=== PATIENT | male | born 1935 | race Caucasian/White ===

== ENCOUNTER 2016-07-19 18:51 | Emergency (ER) | payer MEDICARE ==
[~2016-07-19] VITALS: Ht 177.8 cm; Wt 109.1 kg
[~2016-07-19 18:51] MED LIST: ASPI-973 PO; ATOR20TA PO; LORA-303 PO; LOSA50TA37 PO; METO25TA99 PO; NITR0.4T SL; OMEG500C3 PO; OXYC1TAB24 PO; PANT40TA2 PO; SUCR1TAB30 PO
[2016-07-19 18:52] VITALS: BP 190/131; PULSE 86; RESP 15; O2SAT 100
--- NOTE | 2016-07-19 19:11 | ED.REPORT ---
HPI-General Illness Date of Service Jul 19, 2016 ED Provider: Dr. Yifan Rolon MD An 81 year old male with a history of hypertension, ASPVD s/p CABG, type II diabetes mellitus, GERD, GI bleeds and a previous aortic aneurysm presents to the ED with multiple medical complaints associated with high BP that began yesterday. Associated symptoms include headache, irritability and general malaise for the past few days. Patient recorded his systolic BP at 167/110 last night and called his PCP who recommended he take Losartan, Lorazepam and Metoprolol. Patient took 3 Metoprolol today with little relief. His symptoms have been persistent since onset. Nursing Notes Stated Complaint: HIGH B.P. Chief Complaint: General Complaint Nursing Notes Reviewed: Yes Allergies: Coded Allergies: Penicillins (Verified Allergy, Unknown, 07/19/16) azithromycin (Verified Allergy, Unknown, 07/19/16) escitalopram (Verified Allergy, Unknown, 07/19/16) Scheduled Aspirin (Aspirin) 81 Mg Tablet 81 MG PO DAILY Atorvastatin (Lipitor) 20 Mg Tablet 40 MG PO DAILY Losartan Potassium (Losartan Potassium) 50 Mg Tablet 50 MG PO DAILY Metoprolol Succinate ER (Metoprolol Succinate ER) 25 Mg Tab.er.24h 25 MG PO DAILY [place]-3 Fatty Acids (Fish Oil) 500 Mg Capsule 1,000 MG PO DAILY Pantoprazole DR (Protonix) 40 Mg Tablet 40 MG PO BID Sucralfate (Carafate) 1 Gm Tablet 1 GM PO QID Scheduled PRN Lorazepam (Ativan) 1 Mg Tablet 1 MG PO QID PRN PRN For Anxiety or Agitation Nitroglycerin SL (Nitrostat) 0.4 Mg Tab.subl 0.4 MG SL Q5MIN PRN PRN For Chest Pain oxyCODONE-Acetaminophen 5-325 mg (oxyCODONE-Acetaminophen 5-325 mg) 1 Each Tablet 1 TAB PO Q4H PRN PRN For Pain General Time Seen by MD: 19:11 Chief Complaint Multip medical complaints Hx Obtained From: Patient Arrived By: Walk-in Sudden in Onset?: No Onset Occurred: Yesterday Symptom Duration: Since onset Location: : Head Quality: Aching Radiation: : Does not radiate Severity: Current: Mild Severity: Maximum: Mild Associated with: Reports: Headache Additional Notes: Malaise Irritability Pertinent Negative: Pt denies other symptoms Pertinent Negative: Relieved by nothing Recent Healthcare: No recent doctor visit, No recent hospitalization Past Medical History Past Medical History Notes: Stress test 11/15/2015 Past Medical History 1. ASCVD status post CABG as above. 2. ASPVD with apparent history of aortic arch aneurysm, now status post repair. 3. Aortic valve disease status post bioprosthetic valve replacement. 4. Hypertension. 5. Obesity. 6. Type 2 diabetes mellitus, diet controlled (though he notes he is fairly noncompliant with diet). 7. GERD. 8. Degenerative arthritis. 9. As noted he also has chronic, intermittent vertigo. 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 Physical Exam Vital Signs Vital Signs Date Time Temp Pulse Resp B/P Pulse Ox O2 Delivery O2 Flow Rate FiO2 07/19/16 23:43 75 16 175/101 98 Room Air 07/19/16 22:36 36 88 20 123/68 99 Room Air 07/19/16 22:22 36 88 20 123/68 99 Room Air 07/19/16 21:04 36.4 68 20 129/69 97 Room Air 07/19/16 18:52 36.0 86 15 190/131 100 Room Air Initial VS: Reviewed Neck: Supple, Non-tender, Full range of motion Extremities: Vascular intact, Neuro intact, No swelling, No tenderness Skin: Warm, Dry, No cyanosis Neurologic: Alert, Oriented, Nonfocal Psychiatric: Mood/affect normal, Behavior normal, Normal thought content General/Constitutional: Awake, Alert Behavior: Positive: Anxious Head / Eyes: Atraumatic, Normocephalic, PERRL Respiratory / Chest: Atraumatic, Breath sounds NL, Breath sounds = bilat, No respiratory distress Cardiovascular: Heart rate NL, Regular rhythm, Heart sounds NL, Peripheral circulation NL, Pulses = bilaterally Abdomen: Atraumatic, Soft, Non-tender Interpretation & Diagnostics Lab Results Interpretation Result Diagram: 07/19/16190407/19/161904 Test 07/19/16 19:05 White Blood Count 8.1th/mm3 (3.8-10.1) Red Blood Count 5.03mil/mm3 (4.40-5.80) Hemoglobin 14.8g/dL (13.8-17.2) Hematocrit 45.7% (41.0-50.0) Mean Corpuscular Volume 90.9fL (81-100) Mean Corpuscular Hemoglobin 29.4pg (27.0-35.0) Mean Corpuscular Hemoglobin Concent 32.4% (32.0-37.0) Red Cell Distribution Width 14.8% (12.3-15.4) Platelet Count 240bil/L (150-400) Neutrophils (%) (Auto) 57.7% (40-74) Lymphocytes (%) (Auto) 24.6% (14-46) Monocytes (%) (Auto) 11.5% (4-12) Eosinophils (%) (Auto) 5.4% (0-5) Basophils (%) (Auto) 0.6% (0-3) D-Dimer 3.53mg/L FEU (<0.50) Sodium Level 137mEq/L (134-144) Potassium Level 4.8mEq/L (3.5-5.2) Chloride Level 99mEq/L (97-108) Carbon Dioxide Level 21mmol/L (18-29) Blood Urea Nitrogen 26mg/dL (8-27) Creatinine 1.28mg/dL (0.76-1.27) Estimat Glomerular Filtration Rate 57mL/min (>59) Glucose Level 119mg/dL (60-99) Calcium Level 9.5mg/dL (8.5-10.1) Magnesium Level 2.1mg/dL (1.6-2.6) Total Bilirubin 0.4mg/dL (0.0-1.2) Aspartate Amino Transf (AST/SGOT) 23U/L (0-50) Alanine Aminotransferase (ALT/SGPT) 14U/L (0-44) Alkaline Phosphatase 78U/L (25-160) Troponin T 0.010ug/L (0.0-0.011) Total Protein 7.9g/dL (6.4-8.4) Albumin 4.6g/dL (3.4-5.0) Hold Pagan Top Tube Received (Received) ECG Interpretation ECG Interpretation: Normal Sinus Rhythm Time: 19:14 Interpreted by: ED physician X-Ray Chest Interpretation Chest Xray Interpretation: IMPRESSION: No acute cardiopulmonary disease process. Dictated by: Katherine Lyles MD, PhD on 07/19/2016 at 19:36 Interpretation / Wet Read by: Interpret - Radiologist Re-Eval/Medical Decision Med Decision/Clinical Course After everything was said and done wanes blood pressure came down. He was complaining of some epigastric pain and he is known to have an aneurysmal aorta. I ordered a CT scan. He got over a CT study and wanted to it. He decided he wanted to go home. His blood pressure then spiked again and he would not gallbladder and other medicines for clonidine. His blood pressure came down. I offered admission. He wanted nothing to do with that either. Eventually he was pleased and was ready to go home. I did ask calls doctor tomorrow. Time of Eval: 22:21 Patient Status: Condition improved Re-Evaluation/Progress Note: Patient is rechecked. He reports that he is feeling much better and his BP has improved. Patient is given the recommendation to obtain a CT of the Abd/pelvis but declines. He is given strict return precautions. Counseled Regarding: Diagnosis, Lab results, Need for follow-up, When/why to return to ED Discharge & Departure Primary Impression: Episode of hypertension Disposition: Home Discharge Condition All VS Reviewed: Yes Condition: Improved Patient Instructions: Chronic Hypertension (ED) Additional Instructions: Thank you for trusting us with your care this evening. Your lab results, EKG and chest X-ray are reassuring that there is no dangerous cause for concern at this time, however a clear cause of your symptoms was not identified and a CT of your abdomen and pelvis is recommended. Please return to the emergency department if you change you mind about the scan or begin to experience any shortness of breath, worsening pain, numbness/tingling in your extremities, chills, fever, nausea or vomiting. Continue to take your blood pressure medication as directed. I highly recommend that you schedule a follow up appointment with your primary care physician in the next week for a recheck. Referrals: Iam Meraz MD (PCP) Scribe Attestation Portions of this note were transcribed by Mati Ray. I, Dr. Rolon personally performed the history, physical exam and medical decision-making; I reviewed and confirmed the accuracy of the information in the transcribed note. Signed by: Eugenie Naranjo, 07/19/16 2100. copies to: Iam Meraz MD, Todd P DO Jul 19, 2016 19:11 MATI RAY Jul 19, 2016 19:18
--- NOTE | 2016-07-19 19:38 | DRSVH ---
PROCEDURE: X-RAY CHEST ONE VIEW, PORTABLE ([id number]) INDICATIONS: CHEST PAIN TECHNIQUE: One view of the chest was acquired. COMPARISON: [facility], CR, XR CHEST 1VW (PORTABLE), 01/01/2015, 17:07. [facility], CR, CHEST 1VW (PORTABLE), 09/05/2013, 20:15. FINDINGS: Surgical changes and devices: Median sternotomy wires. Lungs and pleura: No pleural effusions or pneumothorax. Lungs are clear. Mediastinum: Mediastinal contours appear normal. Heart size is normal. Bones and chest wall: No suspicious bony lesions. Overlying soft tissues appear unremarkable. IMPRESSION: No acute cardiopulmonary disease process. Dictated by: Katherine Lyles MD, PhD on 07/19/2016 at 19:36 Approved by: Katherine Lyles MD, PhD on 07/19/2016 at 19:36
[2016-07-19 19:50] LABS: BASOPHILS % (AUTO) 0.6 % (0-3); EOSINOPHILS % (AUTO) 5.4 % (0-5); MONOCYTES % (AUTO) 11.5 % (4-12); Mean Corpuscular Hemoglobin 29.4 pg (27.0-35.0); Mean Corpuscular Volume 90.9 fL (81-100); NEUTROPHILS % (AUTO) 57.7 % (40-74); Platelet Count 240 bil/L (150-400)
[2016-07-19 20:16] LABS: TROPONIN T < 0.010 ug/L (0.0-0.011)
[2016-07-19 20:26] LABS: Magnesium 2.1 mg/dL (1.6-2.6)
[2016-07-19 21:04] VITALS: BP 129/69; PULSE 68; RESP 20; O2SAT 97
[2016-07-19 22:36] VITALS: BP 123/68; PULSE 88; RESP 20; O2SAT 99
[2016-07-19 23:43] VITALS: BP 175/101; PULSE 75; RESP 16; O2SAT 98
[2016-07-19] MEDS ORDERED: cloNIDine 0.1 mg Tablet PO ONE (23:45)
== END 2016-07-19 23:48 | disposition home or self-care (01) ==
LOC: SED 18:51
DX: I10 Essential (primary) hypertension (principal); R10.13 Epigastric pain; E11.9 Type 2 diabetes mellitus without complications; K21.9 Gastro-esophageal reflux disease without esophagitis; F17.200 Nicotine dependence, unspecified, uncomplicated; Z88.0 Allergy status to penicillin; Z88.8 Allergy status to other drugs, medicaments and biological substances; Z79.82 Long term (current) use of aspirin; Z95.1 Presence of aortocoronary bypass graft